=== PATIENT | female | born 1960 | race Caucasian/White ===

== ENCOUNTER 2017-05-23 12:07 | Inpatient (IN) | payer OTHER ==
[2017-05-23] MEDS ORDERED: Morphine Sulfate 2 mg/mL 1mL Syr IM STA (12:20)
[2017-05-23] MEDS ORDERED: Morphine Sulfate 4 mg/mL 1mL Syr ONE (12:24)
[2017-05-23] MEDS ORDERED: Sodium Chloride 0.9% 1,000 ML IV ONE (13:36)
[2017-05-23 13:49] LABS: % BASOPHILS 1.1 % (0.0-2.0); % LYMPHOCYTES 8.2 % (20.0-50.0); % MONOCYTES 3.1 % (2.0-10.0); % NEUTROPHILS 86.6 % (40.0-80.0); BASOPHILE ABSOLUTE 0.1 Th/cumm (0-0.2); EOSINOPHILE ABSOLUTE 0.1 Th/cmm (0.1-0.4); HEMATOCRIT 44.9 % (41.0-60); MEAN CELL VOLUME 86.6 fl (81-100); MEAN CORPUSCULAR HEMOGLOBIN 28.9 pg (27.0-31.0); MEAN CORPUSCULAR HGB CONC 33.4 pg (28.0-36.0); MEAN PLATELET VOLUME 7.9 fl; MONOCYTE ABSOLUTE 0.4 Th/cmm (0.3-1.0); PLATELET COUNT 253 Th/cmm (150-400); RED BLOOD COUNT 5.18 Mil/cmm (3.80-5.10); RED CELL DISTRIBUTION WIDTH 12.5 % (11.5-20.0); WHITE BLOOD COUNT 11.6 Th/cmm (4.8-10.8)
[2017-05-23 13:51] LABS: URINE MICROSCOPIC INDICATED? YES; URINE SOURCE CLEAN C
[2017-05-23 14:01] LABS: URINE BILIRUBIN NEGATIVE (NEGATIVE); URINE BLOOD LARGE (NEGATIVE); URINE CLARITY CLEAR (CLEAR); URINE COLOR YELLOW; URINE GLUCOSE (UA) NEGATIVE (NEGATIVE); URINE KETONE NEGATIVE (NEGATIVE); URINE LEUKOCYTE ESTERASE NEGATIVE (NEGATIVE); URINE NITRATE NEGATIVE (NEGATIVE); URINE PROTEIN NEGATIVE (NEGATIVE); URINE UROBILINOGEN 0.2 E.U./dL (0.2 - 1.0)
--- NOTE | 2017-05-23 14:03 | ED Physician Chart ---
ED Chief Complaint/HPI - Patient Information Date Seen:: 05/23/17 Time Seen:: 12:20 Chief Complaint:: Flank Pain History of Present Illness:: onset since 8am this am of intermittent, crampy right flank pain, N/V; pt denies trauma, H/As, S/T, neck pain, cough, C/P, SOB, Abd. Pain, A/D/C, fever, chills, or urinary s/s Allergies:: Allergies Allergy/AdvReac Type Severity Reaction Status Date / Time No Known Allergies Allergy Verified 05/23/17 12:20 Vitals:: Vital Signs - 8 hr 05/23/17 05/23/17 12:20 13:46 Temp 97.3 F 98.0 F HR 76 82 RR 16 18 BP 142/79 173/78 O2 Sat % 96 99 Historian:: Patient, Family Member Review:: Nurse's Note Reviewed ED Review of Systems - Review of Systems General/Constitutional: No fever, No chills, No weight loss, No weakness, No diaphoresis, No edema, No loss of appetite Skin: No skin lesions, No rash, No bruising Head: No headache, No light-headedness Eyes: No loss of vision, No pain, No diplopia ENT: No earache, No nasal drainage, No sore throat, No tinnitus Neck: No neck pain, No swelling, No thyromegaly, No stiffness, No mass noted Cardio Vascular: No chest pain, No palpitations, No PND, No orthopnea, No edema Pulmonary: No SOB, No cough, No sputum, No wheezing GI: Nausea, Vomiting, Diarrhea, Pain, No melena, No hematochezia, No constipation, No hematemesis G/U: No dysuria, No frequency, Hematuria, No nacturia Certified Coder: No vaginal discharge, No abnormal vaginal bleed, No contraction Musculoskeletal: No bone or joint pain, No back pain, No muscle pain Endocrine: No polyuria, No polydipsia Psychiatric: No prior psych history, No depression, No anxiety, No suicidal ideation, No homicidal ideation, No auditory hallucination, No visual hallucination Hematopoietic: No bruising, No lymphadenopathy Allergic/Immuno: No urticaria, No angioedema Neurological: No syncope, No focal symptoms, No weakness, No paresthesia, No headache, No seizure, No dizziness, No confusion, No vertigo ED Past Medical History - Past Medical History Obtainable: Yes Past Medical History: HTN, Renal stone Family History: HTN Social History: Non Smoker, No Alcohol, No Drug Use, Surgical History: Appendectomy, Hysterectomy Psychiatricy History: None Medication: Reviewed Family Medical History - Family Member Mother Ethnicity: Non- Living Status: Still Living Hx Family Cancer: Yes (Breast cancer) Hx Family Coronary Artery Disease: No Hx Family Congestive Heart Failure: No Hx Family Hypertension: No Hx Family Stroke: No Hx Family Diabetes: No Hx Family Seizures: No Hx Family Dementia: No Hx Family AIDS: No Hx Family HIV: No Hx Family COPD: No Hx Family Hepatitis: No Hx Family Psychiatric Problems: No Hx Family Tuberculosis: No ED Physical Exam - Physical Examination General/Constitutional: Awake, Well-developed, well-nourished, Alert, No distress, GCS 15, Non-toxic appearing, Ambulatory Head: Atraumatic Eyes: Lids, conjuctiva normal, PERRL, EOMI Skin: Nl inspection, No rash, No skin lesions, No ecchymosis, Well hydrated, No lymphadenopathy ENMT: External ears, nose nl, TM canals nl, Nasal exam nl, Lips, teeth, gums nl , Oropharynx nl, Tonsils nl Neck: Nontender, Full ROM w/o pain, No JVD, No nuchal rigidity, No bruit, No mass, No stridor Other Neck comments:: supple; no cervical tenderness; no meningeal signs Respiratory: Nl effort/Exclusion, Clear to Auscultation, No Wheeze/Rhonchi/Rales Cardio Vascular: RRR, No murmur, gallop, rubs, NL S1 S2, Carotid/Femoral/Distal pulses equal bilaterally GI: No tenderness/rebounding/guarding, No organomegaly, No hernia, Normal BS's, Nondistended, No mass/bruits, No McBurney tenderness, Rectum exam nl Other GI comments:: no pulsatile masses : No CVA tenderness Extremities: No tenderness or effusion, Full ROM, normal strength in all extremities, No edema, Normal digits & nails Neuro/Psych: Alert/oriented, DTR's symmetric, Normal sensory exam, Normal motor strength, Judgement/insight normal, Mood normal, Normal gait, No focal deficits Misc: Normal back, No paraspinal tenderness ED Labs/Radiology/EKG Results - Lab Results Results: Laboratory Tests 05/23/17 13:36 WBC 11.6 H RBC 5.18 H Hgb 15.0 Hct 44.9 MCV 86.6 MCH 28.9 MCHC Differential 33.4 RDW 12.5 Plt Count 253 MPV 7.9 Neutrophils % 86.6 H Lymphocytes % 8.2 L Monocytes % 3.1 Eosinophils % 1.0 Basophils % 1.1 Comments:: U/A: + Blood - Radiology Results Comments:: + Right Ureter Calculus - EKG Interpretations EKG Time:: 13:40 Rate & Rhythm: 69; NSR Comments:: non-specific st-t changes ED Septic Shock - . Is Septic Shock (SBP<90, OR Lactate>4 mmol\L) present?: No - <6hrs of presentation: Vital Signs: Vital Signs - 8 hr 05/23/17 05/23/17 12:20 13:46 Temp 97.3 F 98.0 F HR 76 82 RR 16 18 BP 142/79 173/78 O2 Sat % 96 99 ED Reassessment (Disposition) - Reassessment Reassessment Condition:: Improved - Diagnosis Diagnosis:: Flank Pain; Hematuria; Ureterolithiasis - Aftercare/Follow up Instructions Aftercare/Follow-Up Instructions:: Counseled pt regarding lab results/diagnosis & need follow up, Counseled pt & family regarding lab results/diagnosis & need follow up - Patient Disposition Discharge/Transfer:: Acute Care w/in this hosp Accepting Physician:: Dr. Richter Time Called:: 0306 Time Responded:: 14:15 Admitted to:: Med/Surg Spoke to:: Dr. Richter Admitting Medical Physician:: Dr. Richter Condition at Disposition:: Stable, Improved
[2017-05-23 14:04] LABS: URINE BACTERIA FEW /hpf (NONE SEEN); URINE EPITHELIAL CELLS FEW /lpf (FEW); URINE WBC 0-2 /hpf (0-5)
[2017-05-23 14:04] LABS: INR 0.99 (0.5-1.4); PROTHROMBIN TIME (TEST) 10.3 SECONDS (9.5-11.5)
[2017-05-23 14:12] LABS: ALB/GLOB RATIO 1.4 (1.0-1.8); ALBUMIN 4.4 gm/dL (3.7-5.3); ALKALINE PHOSPHATASE 88 U/L (34-104); AMYLASE SERUM 18 U/L (29-103); ANION GAP 11.9 (7.0-16.0); BILIRUBIN,TOTAL 1.2 mg/dL (0.3-1.0); BUN - UREA NITROGEN 18 mg/dL (7-25); CALCIUM SERUM 10.1 mg/dL (8.6-10.3); CARBON DIOXIDE 24.9 mEq/L (21.0-31.0); CHLORIDE 103 mEq/L (98-107); CHOLESTEROL 218 mg/dL (<200); CREATININE KINASE 64 U/L (30-223); GFR AFRICAN-AMERICAN > 60.0 ml/min (>90); GFR NON AFRICAN-AMERICAN > 60.0 ml/min; GLUCOSE 137 mg/dL (70-105); HDL -HIGH DENSITY LIPOPROTEIN 49 mg/dL (23-92); LIPASE 24 U/L (11-82); POTASSIUM SERUM 3.8 mEq/L (3.5-5.1); SGOT 11 U/L (13-39); SGPT/ALT 11 U/L (7-52); SODIUM SERUM 136 mEq/L (136-145); TOTAL PROTEIN,SERUM 7.6 gm/dL (6.0-8.3); TRIGLYCERIDES 126 mg/dL (<150)
[2017-05-23] MEDS ORDERED: Morphine Sulfate 4 mg/mL 1mL Syr IM PRN (16:07)
[2017-05-23 17:44] VITALS: BP 146/80
[2017-05-23] MEDS: Sodium Chloride 0.9% 1,000 ML IV SCH ×2 (18:07→22:32)
--- NOTE | 2017-05-23 23:13 | Consultation ---
Consult Note - Consult Note Service Date: 05/23/17 Referring Physician: Crystal Richter Consult Note: PHYSICIAN Consultation Note: Date of Admission: 05/23/17 Purpose of Consultation: hematuria, nephrolithiasis. Chief Complaint: flank pain. History of Present Illness: Patient GRACE RANDHAWA was admitted to [facility] Unit I with KIDNEY STONES. Past Medical History: 56 year old female presented tot he ER for right flank pain with CVA tenderness. She denies any fever or chills. On initial evaluation , she was afebrile and WBC Count was 11k. UA showed mild hematuria, CT abdomen and pelvis revealed right distal ureteric stone. ID consult was called for antibiotic management. Allergies Allergy/AdvReac Type Severity Reaction Status Date / Time No Known Allergies Allergy Verified 05/23/17 12:20 Vital Signs Temp 97.6 F 05/23/17 19:54 Pulse 77 05/23/17 19:54 Resp 18 05/23/17 19:54 BP 139/70 05/23/17 19:54 Pulse Ox 96 05/23/17 19:54 Intake & Output 05/23/17 05/23/17 05/24/17 06:59 18:59 06:59 Intake Total 350 883.333 Balance 350 883.333 Weight (lbs) 95.254 kg Intake: Intake, IV Amount 883.333 Sodium Chloride 0.9% 1, 883.333 000 ml @ 200 mls/hr IV . Q5H [facility] Rx#:[id number] Oral 350 Other: # Voids 1 # Bowel Movements 0 Weight Source Bedscale Home Medication Medication Instructions Recorded Type amLODIPine Besylate [Norvasc] 5 mg PO DAILY #30 tab 02/02/15 Rx Current Medications Generic Name Dose Route Start Last Admin Trade Name Freq PRN Reason Stop Dose Admin Amlodipine Besylate 5 mg 05/24/17 09:00 Norvasc PO 07/23/17 08:59 DAILY [facility] Sodium Chloride 1,000 mls @ 200 mls/hr 05/23/17 16:04 05/23/17 22:32 Nacl 0.9% IV 07/22/17 16:03 200 mls/hr .Q5H [facility] Administration Ketorolac Tromethamine 30 mg 05/23/17 16:20 05/23/17 20:07 Toradol IVP 05/28/17 16:19 30 mg Q6H PRN Administration Pain (Mild) Morphine Sulfate 2 mg 05/23/17 16:07 Morphine IM 07/22/17 16:01 Q4H PRN Pain (Moderate) Tamsulosin HCl 0.4 mg 05/23/17 17:00 05/23/17 17:16 Flomax PO 05/25/17 16:59 0.4 mg BID [facility] Administration Review of Systems: A 12 point ROS was reviewed with the pertinent positive and negatives noted in the HPI. Social History Smoking Status Former smoker Family Medical History Family Medical History Start: 05/23/17 16: 55 Freq: ONCE Status: Active Document 05/23/17 16:55 [facility] (Rec: 05/23/17 17:48 [email or web address]) Family Medical History Mother History Unknown Yes Physical Exam: General: Comfortable, not in any acute distress. HEENT: Head: normocephalic, atraumatic. Oral cavity: moist: pink tongue. Eyes: no pallor, no icterus. Pupill PERRLA. EOMI. Neck: Supple, no JVD. Cardio: S1 S2 WNL. Respiratory: vesicular breath sounds. No crackles, no wheezing. Abdominal: Soft NT ND BS present. Genital/Urinary: deferred Extremities: NCCE Neurological: AAOx3, no focal weakness. Assessment: 1. Hematuria, 2. Nephrolithiasis. 3. Leukocytosis, 4. Obesity. Plan: Cipro 250 mg po bid for 7 days, Follow up final CT scan of abdomen report. US renal/ Signed, Anthony Palmer M.D. [id number]
--- NOTE | 2017-05-24 01:17 | History & Physical ---
ADMIT DATE: 05/23/2017 HISTORY OF PRESENT ILLNESS: This is a female who came to the Emergency Room complaining of severe right flank pain and seen in the Emergency Room, had no fever, no chills, no rigors and the patient found to have a ureteral stone. REVIEW OF SYSTEMS: No polyuria, no polydipsia, no vaginal discharge, no dysuria. No nausea, vomiting, no bruising, etc. Rest of the system review negative. PAST MEDICAL HISTORY: Hypertension and renal stones in the past. PHYSICAL EXAMINATION: GENERAL: Alert, oriented female. VITAL SIGNS: Stable. Blood pressure was 142/79. HEAD: Normal. ENT: Normal. NECK: Supple, nontender. LUNGS: Clear. CARDIOVASCULAR SYSTEM: S1, S2 heard. ABDOMEN: flank tenderness noted. CENTRAL NERVOUS SYSTEM: Grossly normal. LABORATORY AND DIAGNOSTIC DATA: White count was slightly elevated at 11.6, hemoglobin 15, crit of 44. Electrolytes are within normal limits. EKG normal sinus rhythm, no acute ST-T changes. DIAGNOSES: Acute right flank pain, renal colic, renal stones and history of hypertension was made. The patient is being admitted. I will give IV fluids and antibiotics and I will have Dr. Anthony Palmer see the patient as well as Urology, Dr. Leo and I will follow the patient. JOB# [id number]
[2017-05-24] MEDS: Sodium Chloride 0.9% 1,000 ML IV SCH ×2 (03:10→08:07)
[2017-05-24 06:07] LABS: % BASOPHILS 0.8 % (0.0-2.0); % EOSINOPHILS 1.7 % (0.0-5.0); % LYMPHOCYTES 16.8 % (20.0-50.0); % MONOCYTES 6.8 % (2.0-10.0); % NEUTROPHILS 73.9 % (40.0-80.0); BASOPHILE ABSOLUTE 0.1 Th/cumm (0-0.2); EOSINOPHILE ABSOLUTE 0.1 Th/cmm (0.1-0.4); HEMOGLOBIN 12.9 gm/dL (12-16); LYMPHOCYTE ABSOLUTE 1.3 Th/cmm (1.5-3.0); MEAN CELL VOLUME 87.2 fl (81-100); MEAN CORPUSCULAR HEMOGLOBIN 29.3 pg (27.0-31.0); MEAN CORPUSCULAR HGB CONC 33.6 pg (28.0-36.0); MEAN PLATELET VOLUME 7.6 fl; MONOCYTE ABSOLUTE 0.5 Th/cmm (0.3-1.0); PLATELET COUNT 219 Th/cmm (150-400); RED CELL DISTRIBUTION WIDTH 12.8 % (11.5-20.0)
[2017-05-24 06:12] LABS: HEMATOCRIT 38.3 % (41.0-60)
[2017-05-24 06:34] LABS: ALB/GLOB RATIO 1.4 (1.0-1.8); ALBUMIN 3.5 gm/dL (3.7-5.3); ALKALINE PHOSPHATASE 68 U/L (34-104); ANION GAP 8.3 (7.0-16.0); BILIRUBIN,TOTAL 0.9 mg/dL (0.3-1.0); BUN - UREA NITROGEN 13 mg/dL (7-25); CARBON DIOXIDE 26.9 mEq/L (21.0-31.0); CHLORIDE 110 mEq/L (98-107); CHOLESTEROL 180 mg/dL (<200); CREATININE - SERUM 0.9 mg/dL (0.6-1.2); GFR AFRICAN-AMERICAN > 60.0 ml/min (>90); GFR NON AFRICAN-AMERICAN > 60.0 ml/min; GLUCOSE 100 mg/dL (70-105); HDL -HIGH DENSITY LIPOPROTEIN 42 mg/dL (23-92); POTASSIUM SERUM 4.2 mEq/L (3.5-5.1); SGOT 11 U/L (13-39); SGPT/ALT 8 U/L (7-52); SODIUM SERUM 141 mEq/L (136-145); TRIGLYCERIDES 67 mg/dL (<150)
--- NOTE | 2017-05-24 07:35 | Diagnostic Imaging Report ---
CT abdomen and pelvis without intravenous contrast Indication: Flank pain, rule out kidney stones Comparison: None, Technique: Axial images were obtained from the lung bases to the bilateral proximal femurs without IV contrast. Coronal reconstructions were made. total DLP: 805, CTDI16.1 FINDINGS: Hypoventilatory and atelectatic changes of the lung bases are noted. Exam is limited due to motion. Assessment of solid organs is also limited due to lack of IV contrast. No evidence of focal hepatic, splenic, pancreatic, or adrenal lesions. 2 mm nonobstructive left renal stone is noted. Right-sided perinephric inflammatory changes seen with mild right hydronephrosis and right hydroureter. There is a 2 to 3 mm stone of the distal right ureter. The urinary bladder is underdistended limiting its evaluation. Diverticulosis is noted without evidence of diverticulitis. Appendix is not well-visualized. No evidence of free abdominal air or free abdominal fluid. Mild atherosclerosis is noted. Degenerative changes of the spine are noted with scoliosis. IMPRESSION: 2 to 3 mm stone of the right distal ureter causing mild right hydronephrosis and right hydroureter with surrounding right perinephric inflammatory changes 2mm nonobstructive left renal stone. Diverticulosis without evidence of diverticulitis. Atherosclerotic vascular disease. Degenerative changes of spine with scoliosis.
--- NOTE | 2017-05-24 10:52 | Diagnostic Imaging Report ---
Renal ultrasound HISTORY: Hydronephrosis, pyelonephritis. COMPARISON: CT abdomen and pelvis on 05/23/2017 Technique: Sonography of the kidneys and urinary bladder was performed in multiple planes. FINDINGS: The right kidney measures 12.3 x 4.7 cm. There is mild right hydronephrosis. No focal lesions identified. The left kidney measures 10.7 x 5.0 cm. The recently seen punctate stone on recent CT examination was not identified on this ultrasound. The urinary bladder is grossly unremarkable. No evidence of elevated posterior residual bladder volumes. IMPRESSION: Mild right-sided hydronephrosis. This is likely secondary to a distal right ureteral stone seen on recent CT examination.
--- NOTE | 2017-05-24 15:19 | General Progress Note ---
Subjective - Review of Systems Events since last encounter: patient awake alert c/o flank pain no fever Objective - Results Result Diagrams: 05/24/17 05:53 05/24/17 05:53 Recent Labs: Laboratory Last Values WBC 8.0 Th/cmm (4.8-10.8) D 05/24/17 05:53 RBC 4.40 Mil/cmm (3.80-5.10) 05/24/17 05:53 Hgb 12.9 gm/dL (12-16) 05/24/17 05:53 Hct 38.3 % (41.0-60) L D 05/24/17 05:53 MCV 87.2 fl (81-100) 05/24/17 05:53 MCH 29.3 pg (27.0-31.0) 05/24/17 05:53 MCHC Differential 33.6 pg (28.0-36.0) 05/24/17 05:53 RDW 12.8 % (11.5-20.0) 05/24/17 05:53 Plt Count 219 Th/cmm (150-400) 05/24/17 05:53 MPV 7.6 fl 05/24/17 05:53 Neutrophils % 73.9 % (40.0-80.0) 05/24/17 05:53 Lymphocytes % 16.8 % (20.0-50.0) L 05/24/17 05:53 Monocytes % 6.8 % (2.0-10.0) 05/24/17 05:53 Eosinophils % 1.7 % (0.0-5.0) 05/24/17 05:53 Basophils % 0.8 % (0.0-2.0) 05/24/17 05:53 PT 10.3 SECONDS (9.5-11.5) 05/23/17 13:43 INR 0.99 (0.5-1.4) 05/23/17 13:43 Sodium 141 mEq/L (136-145) 05/24/17 05:53 Potassium 4.2 mEq/L (3.5-5.1) 05/24/17 05:53 Chloride 110 mEq/L (98-107) H 05/24/17 05:53 Carbon Dioxide 26.9 mEq/L (21.0-31.0) 05/24/17 05:53 Anion Gap 8.3 (7.0-16.0) 05/24/17 05:53 BUN 13 mg/dL (7-25) 05/24/17 05:53 Creatinine 0.9 mg/dL (0.6-1.2) 05/24/17 05:53 Est GFR ( Amer) > 60.0 ml/min (>90) 05/24/17 05:53 Est GFR (Non-Af Amer) > 60.0 ml/min 05/24/17 05:53 BUN/Creatinine Ratio 14.4 05/24/17 05:53 Glucose 100 mg/dL (70-105) 05/24/17 05:53 Calcium 9.0 mg/dL (8.6-10.3) 05/24/17 05:53 Total Bilirubin 0.9 mg/dL (0.3-1.0) 05/24/17 05:53 AST 11 U/L (13-39) L 05/24/17 05:53 ALT 8 U/L (7-52) 05/24/17 05:53 Alkaline Phosphatase 68 U/L (34-104) 05/24/17 05:53 Creatine Kinase 64 U/L (30-223) 05/23/17 13:43 Troponin I < 0.01 ng/mL (0.01-0.05) L 05/23/17 13:43 B-Natriuretic Peptide 42.1 pg/mL (5.0-100.0) 05/23/17 13:43 Total Protein 6.0 gm/dL (6.0-8.3) 05/24/17 05:53 Albumin 3.5 gm/dL (3.7-5.3) L 05/24/17 05:53 Globulin 2.5 gm/dL 05/24/17 05:53 Albumin/Globulin Ratio 1.4 (1.0-1.8) 05/24/17 05:53 Triglycerides 67 mg/dL (<150) 05/24/17 05:53 Cholesterol 180 mg/dL (<200) 05/24/17 05:53 LDL Cholesterol Direct 115 mg/dL (75-193) 05/24/17 05:53 HDL Cholesterol 42 mg/dL (23-92) 05/24/17 05:53 Amylase 18 U/L (29-103) L 05/23/17 13:43 Lipase 24 U/L (11-82) 05/23/17 13:43 TSH 2.37 uIU/ml (0.34-5.60) 05/24/17 05:53 Serum , Qual NEGATIVE (NEGATIVE) 05/23/17 13:34 Urine Source CLEAN C 05/23/17 13:34 Urine Color YELLOW 05/23/17 13:34 Urine Clarity CLEAR (CLEAR) 05/23/17 13:34 Urine pH 6.0 (4.6 - 8.0) 05/23/17 13:34 Ur Specific [place] >= 1.030 (1.005-1.030) 05/23/17 13:34 Urine Protein NEGATIVE mg/dL (NEGATIVE) 05/23/17 13:34 Urine Glucose (UA) NEGATIVE mg/dL (NEGATIVE) 05/23/17 13:34 Urine Ketones NEGATIVE mg/dL (NEGATIVE) 05/23/17 13:34 Urine Blood LARGE (NEGATIVE) H 05/23/17 13:34 Urine Nitrate NEGATIVE (NEGATIVE) 05/23/17 13:34 Urine Bilirubin NEGATIVE (NEGATIVE) 05/23/17 13:34 Urine Urobilinogen 0.2 E.U./dL (0.2 - 1.0) 05/23/17 13:34 Ur Leukocyte Esterase NEGATIVE (NEGATIVE) 05/23/17 13:34 Urine RBC 5-10 /hpf (0-5) H 05/23/17 13:34 Urine WBC 0-2 /hpf (0-5) 05/23/17 13:34 Ur Epithelial Cells FEW /lpf (FEW) 05/23/17 13:34 Urine Bacteria FEW /hpf (NONE SEEN) 05/23/17 13:34 Urine Test NEGATIVE 05/23/17 13:34 - Physical Exam Vitals and I&O: Vital Signs Temp 97.9 F 05/24/17 11:24 Pulse 82 05/24/17 11:24 Resp 18 05/24/17 11:24 BP 146/78 05/24/17 14:02 Pulse Ox 96 05/24/17 11:24 Intake & Output 05/23/17 05/24/17 05/24/17 18:59 06:59 18:59 Intake Total 350 1810.000 990 Balance 350 1810.000 990 Weight (lbs) 95.254 kg 96.706 kg Intake: Intake, IV Amount 1810.000 990 Sodium Chloride 0.9% 1, 1810.000 990 000 ml @ 200 mls/hr IV . Q5H [facility] Rx#:[id number] Oral 350 Other: # Voids 1 # Bowel Movements 0 Weight Source Bedscale Bedscale Active Medications: Current Medications Amlodipine Besylate (Norvasc) 5 mg PO DAILY [facility] Stop: 07/23/17 08:59 Last Admin: 05/24/17 08:08 Dose: 5 mg Ciprofloxacin (Cipro) 250 mg PO BID [facility] Stop: 07/23/17 08:59 Last Admin: 05/24/17 08:08 Dose: 250 mg Furosemide (Lasix) 20 mg PO DAILY [facility] Stop: 07/23/17 08:59 Last Admin: 05/24/17 14:02 Dose: 20 mg Potassium Chloride 10 meq/ (Sodium Chloride) 1,005 mls @ 175 mls/hr IV .Q5H45M [facility] Stop: 07/23/17 13:59 Last Admin: 05/24/17 14:23 Dose: 175 mls/hr Ketorolac Tromethamine (Toradol) 30 mg IVP Q6H PRN PRN Reason: Pain (Mild) Stop: 05/28/17 16:19 Last Admin: 05/23/17 20:07 Dose: 30 mg Morphine Sulfate (Morphine) 2 mg IM Q4H PRN PRN Reason: Pain (Moderate) Stop: 07/22/17 16:01 Tamsulosin HCl (Flomax) 0.4 mg PO BID [facility] Stop: 05/25/17 16:59 Last Admin: 05/24/17 08:08 Dose: 0.4 mg
--- NOTE | 2017-05-24 23:32 | Infectious Disease Prog Note ---
Infectious Disease Subjective - Review of Systems Service Date: 05/24/17 Subjective: There is no new change, no fever. Infectious Disease Objective - Results Result Diagrams: 05/24/17 05:53 05/24/17 05:53 Recent Labs: Laboratory Last Values WBC 8.0 Th/cmm (4.8-10.8) D 05/24/17 05:53 RBC 4.40 Mil/cmm (3.80-5.10) 05/24/17 05:53 Hgb 12.9 gm/dL (12-16) 05/24/17 05:53 Hct 38.3 % (41.0-60) L D 05/24/17 05:53 MCV 87.2 fl (81-100) 05/24/17 05:53 MCH 29.3 pg (27.0-31.0) 05/24/17 05:53 MCHC Differential 33.6 pg (28.0-36.0) 05/24/17 05:53 RDW 12.8 % (11.5-20.0) 05/24/17 05:53 Plt Count 219 Th/cmm (150-400) 05/24/17 05:53 MPV 7.6 fl 05/24/17 05:53 Neutrophils % 73.9 % (40.0-80.0) 05/24/17 05:53 Lymphocytes % 16.8 % (20.0-50.0) L 05/24/17 05:53 Monocytes % 6.8 % (2.0-10.0) 05/24/17 05:53 Eosinophils % 1.7 % (0.0-5.0) 05/24/17 05:53 Basophils % 0.8 % (0.0-2.0) 05/24/17 05:53 PT 10.3 SECONDS (9.5-11.5) 05/23/17 13:43 INR 0.99 (0.5-1.4) 05/23/17 13:43 Sodium 141 mEq/L (136-145) 05/24/17 05:53 Potassium 4.2 mEq/L (3.5-5.1) 05/24/17 05:53 Chloride 110 mEq/L (98-107) H 05/24/17 05:53 Carbon Dioxide 26.9 mEq/L (21.0-31.0) 05/24/17 05:53 Anion Gap 8.3 (7.0-16.0) 05/24/17 05:53 BUN 13 mg/dL (7-25) 05/24/17 05:53 Creatinine 0.9 mg/dL (0.6-1.2) 05/24/17 05:53 Est GFR ( Amer) > 60.0 ml/min (>90) 05/24/17 05:53 Est GFR (Non-Af Amer) > 60.0 ml/min 05/24/17 05:53 BUN/Creatinine Ratio 14.4 05/24/17 05:53 Glucose 100 mg/dL (70-105) 05/24/17 05:53 Calcium 9.0 mg/dL (8.6-10.3) 05/24/17 05:53 Total Bilirubin 0.9 mg/dL (0.3-1.0) 05/24/17 05:53 AST 11 U/L (13-39) L 05/24/17 05:53 ALT 8 U/L (7-52) 05/24/17 05:53 Alkaline Phosphatase 68 U/L (34-104) 05/24/17 05:53 Creatine Kinase 64 U/L (30-223) 05/23/17 13:43 Troponin I < 0.01 ng/mL (0.01-0.05) L 05/23/17 13:43 B-Natriuretic Peptide 42.1 pg/mL (5.0-100.0) 05/23/17 13:43 Total Protein 6.0 gm/dL (6.0-8.3) 05/24/17 05:53 Albumin 3.5 gm/dL (3.7-5.3) L 05/24/17 05:53 Globulin 2.5 gm/dL 05/24/17 05:53 Albumin/Globulin Ratio 1.4 (1.0-1.8) 05/24/17 05:53 Triglycerides 67 mg/dL (<150) 05/24/17 05:53 Cholesterol 180 mg/dL (<200) 05/24/17 05:53 LDL Cholesterol Direct 115 mg/dL (75-193) 05/24/17 05:53 HDL Cholesterol 42 mg/dL (23-92) 05/24/17 05:53 Amylase 18 U/L (29-103) L 05/23/17 13:43 Lipase 24 U/L (11-82) 05/23/17 13:43 TSH 2.37 uIU/ml (0.34-5.60) 05/24/17 05:53 Serum , Qual NEGATIVE (NEGATIVE) 05/23/17 13:34 Urine Source CLEAN C 05/23/17 13:34 Urine Color YELLOW 05/23/17 13:34 Urine Clarity CLEAR (CLEAR) 05/23/17 13:34 Urine pH 6.0 (4.6 - 8.0) 05/23/17 13:34 Ur Specific [place] >= 1.030 (1.005-1.030) 05/23/17 13:34 Urine Protein NEGATIVE mg/dL (NEGATIVE) 05/23/17 13:34 Urine Glucose (UA) NEGATIVE mg/dL (NEGATIVE) 05/23/17 13:34 Urine Ketones NEGATIVE mg/dL (NEGATIVE) 05/23/17 13:34 Urine Blood LARGE (NEGATIVE) H 05/23/17 13:34 Urine Nitrate NEGATIVE (NEGATIVE) 05/23/17 13:34 Urine Bilirubin NEGATIVE (NEGATIVE) 05/23/17 13:34 Urine Urobilinogen 0.2 E.U./dL (0.2 - 1.0) 05/23/17 13:34 Ur Leukocyte Esterase NEGATIVE (NEGATIVE) 05/23/17 13:34 Urine RBC 5-10 /hpf (0-5) H 05/23/17 13:34 Urine WBC 0-2 /hpf (0-5) 05/23/17 13:34 Ur Epithelial Cells FEW /lpf (FEW) 05/23/17 13:34 Urine Bacteria FEW /hpf (NONE SEEN) 05/23/17 13:34 Urine Test NEGATIVE 05/23/17 13:34 - Physical Exam Vitals and I&O: Vital Signs Temp 97.4 F 05/24/17 20:00 Pulse 74 05/24/17 20:00 Resp 20 05/24/17 20:00 BP 146/77 05/24/17 20:00 Pulse Ox 97 05/24/17 20:00 Intake & Output 05/24/17 05/24/17 05/25/17 06:59 18:59 06:59 Intake Total 3132.942 7667.25 348.75 Balance 0301.916 6032.25 348.75 Weight (lbs) 96.706 kg 96.706 kg Intake: Intake, IV Amount 6512.810 1188.25 348.75 Potassium Chloride 10 meq 656.25 348.75 In Sodium Chloride 0.45% 1,000 ml @ 175 mls/hr IV .Q5H45M [facility] Rx#: [id number] Sodium Chloride 0.9% 1, 1810.000 990 000 ml @ 200 mls/hr IV . Q5H [facility] Rx#:[id number] Oral 1200 Other: # Voids 10 # Bowel Movements 1 Weight Source Bedscale Bedscale Active Medications: Current Medications Amlodipine Besylate (Norvasc) 5 mg PO DAILY [facility] Stop: 07/23/17 08:59 Last Admin: 05/24/17 08:08 Dose: 5 mg Ciprofloxacin (Cipro) 250 mg PO BID [facility] Stop: 07/23/17 08:59 Last Admin: 05/24/17 16:36 Dose: 250 mg Furosemide (Lasix) 20 mg PO DAILY [facility] Stop: 07/23/17 08:59 Last Admin: 05/24/17 14:02 Dose: 20 mg Potassium Chloride 10 meq/ (Sodium Chloride) 1,005 mls @ 175 mls/hr IV .Q5H45M [facility] Stop: 07/23/17 13:59 Last Admin: 05/24/17 20:13 Dose: 175 mls/hr Ketorolac Tromethamine (Toradol) 30 mg IVP Q6H PRN PRN Reason: Pain (Mild) Stop: 05/28/17 16:19 Last Admin: 05/24/17 15:57 Dose: 30 mg Morphine Sulfate (Morphine) 2 mg IM Q4H PRN PRN Reason: Pain (Moderate) Stop: 07/22/17 16:01 Tamsulosin HCl (Flomax) 0.4 mg PO BID [facility] Stop: 05/25/17 16:59 Last Admin: 05/24/17 16:36 Dose: 0.4 mg General: no acute distress, well developed, well nourished HEENT: atraumatic, normocephalic, PERRLA, EOMI Neck: supple, no thyromegaly Cardiovascular: S1S2, regular Lungs: clear to auscultation bilaterally, clear to percussion Abdomen: soft, no tender, no distended Extremities: no cyanosis, no clubbing, no edema Neurological: awake, alert, oriented Skin: intact Infectious Disease Assmt/Plan - Assessment Assessment: 1. Hematuria, 2. Nephrolithiasis. 3. Leukocytosis, 4. Obesity. - Plan Plan: CPM.
[2017-05-25 06:13] LABS: % BASOPHILS 0.5 % (0.0-2.0); % EOSINOPHILS 2.5 % (0.0-5.0); % LYMPHOCYTES 20.3 % (20.0-50.0); % MONOCYTES 6.2 % (2.0-10.0); % NEUTROPHILS 70.5 % (40.0-80.0); EOSINOPHILE ABSOLUTE 0.2 Th/cmm (0.1-0.4); HEMATOCRIT 37.5 % (41.0-60); HEMOGLOBIN 12.8 gm/dL (12-16); LYMPHOCYTE ABSOLUTE 1.4 Th/cmm (1.5-3.0); MEAN CORPUSCULAR HEMOGLOBIN 29.7 pg (27.0-31.0); MEAN CORPUSCULAR HGB CONC 34.1 pg (28.0-36.0); MEAN PLATELET VOLUME 7.9 fl; MONOCYTE ABSOLUTE 0.4 Th/cmm (0.3-1.0); NEUTROPHILE ABSOLUTE 5.1 Th/cmm (1.8-8.0); PLATELET COUNT 208 Th/cmm (150-400); RED BLOOD COUNT 4.31 Mil/cmm (3.80-5.10); RED CELL DISTRIBUTION WIDTH 12.7 % (11.5-20.0); WHITE BLOOD COUNT 7.1 Th/cmm (4.8-10.8)
[2017-05-25 06:33] LABS: ANION GAP 7.1 (7.0-16.0); BUN - UREA NITROGEN 12 mg/dL (7-25); CALCIUM SERUM 9.3 mg/dL (8.6-10.3); CARBON DIOXIDE 28.8 mEq/L (21.0-31.0); CHLORIDE 107 mEq/L (98-107); CREATININE - SERUM 0.8 mg/dL (0.6-1.2); GFR AFRICAN-AMERICAN > 60.0 ml/min (>90); GFR NON AFRICAN-AMERICAN > 60.0 ml/min; GLUCOSE 97 mg/dL (70-105); POTASSIUM SERUM 3.9 mEq/L (3.5-5.1); SODIUM SERUM 139 mEq/L (136-145)
--- NOTE | 2017-05-25 19:20 | Consultation ---
DATE OF CONSULTATION: 05/25/2017 UROLOGY CONSULTATION REASON FOR CONSULTATION: Seen for stone in the right ureter and hydronephrosis. HISTORY OF PRESENT ILLNESS: The patient is a 56-year-old, who was admitted on the with right-sided abdominal pain and some nausea, vomiting. No diarrhea. Also, denied fever, chills, dysuria, or hematuria. She admits to having stones, one at age 31 that she passed and then another one 2 years ago, which she also passed, but were never analyzed. No interim Urology followup or monitoring. There is a family history of stone disease. ALLERGIES: None. REVIEW OF SYSTEMS: No fever, chills, weight loss, headache, or seizures. Denies sore throat or runny nose. No skin lesions, rash, or arthritis. Denies chest pain, coughing, or shortness of breath. No dysuria or hematuria. MEDICAL HISTORY: Positive for hypertension secondly as well as the stone disease mentioned earlier. Denies diabetes or heart disease. SOCIAL HISTORY: Lives at home. She is and has no tobacco or substance abuse or alcohol problems. SURGICAL HISTORY: Had hysterectomy and appendectomy. PHYSICAL EXAMINATION: GENERAL: On exam, she is awake, alert, oriented. Pain has not come back since yesterday. VITAL SIGNS: Temperature 98, heart rate 72, blood pressure 144/76, T-max has been 98.6. HEAD AND NECK: Normocephalic. Trachea central. Pupils equal and reactive. No jaundice. Thyroid and lymph nodes not palpable. Carotid bruit absent. CHEST: Symmetrical. LUNGS: Clear. No rales or rhonchi. HEART: Sounds normal in sinus rhythm, no murmur. ABDOMEN: Soft, nontender, no organomegaly, mass, or hernia. Flanks nontender to percussion. EXTREMITIES: No edema or lymphadenopathy. NEUROLOGIC: Nonfocal. Moves all 4 limbs. LABORATORY DATA: White count 7.1 down from 11.6 on admission, hemoglobin 12.8, down from 15 on admission. Platelets normal. PT, PTT are normal. Electrolytes are normal. Creatinine 0.8, was up to 1.0 on admission. Total bilirubin 1.2 on admission, came down to 0.9. Subsequently, urinalysis showed large amount of blood, 5-10 red cells, and no cultures were done. CT scan of the abdomen and pelvis showed a 2-3 mm stone in the distal right ureter causing mild right hydronephrosis, hydroureter, and perinephric stranding and there is a second stone in the left kidney, nonobstructive 2 mm as well. Ultrasound of the kidneys done yesterday showed persistent mild right hydronephrosis. Therefore, she was continued on the aggressive hydration and expulsive therapy with which she has passed the stone this morning and hopefully as a result of present emergency situation. She still has to deal with the left-sided stone and ongoing risk of recurrent stones as she has already demonstrated. Recommended dietary modifications, increasing water and lemon intake while reducing salt and animal proteins. She needs Urology surveillance every 3-6 months and immediately after discharge to see a urologist within the week to make sure the stone has passed. Then, she should also follow up on the stone analysis, which we should be available by that time. Meanwhile, we can discharge her on Flomax for another month and thereafter as required depending on the followup. Thank you for the reference. JOB# [id number]
== END 2017-05-25 14:25 | disposition home or self-care (01) | DRG 694 ==
LOC: ER 12:07 → MSI 16:41
PROVIDERS: ADMIT Internal Medicine; ATTEND Internal Medicine
DX: N13.2 Hydronephrosis with renal and ureteral calculous obstruction (principal); E66.9 Obesity, unspecified; I10 Essential (primary) hypertension; R31.9 Hematuria, unspecified; R10.9 Unspecified abdominal pain; Z87.891 Personal history of nicotine dependence; Z68.33 Body mass index [BMI] 33.0-33.9, adult; Z82.49 Family history of ischemic heart disease and other diseases of the circulatory system; Z90.49 Acquired absence of other specified parts of digestive tract; Z90.710 Acquired absence of both cervix and uterus
CPT/HCPCS: 36415-UA; 76770-TC; 80048-TC; 80053-TC; 80061-TC; 81001-TC; 81025-TC; 82150-TC; 82550-TC; 83690-TC; 83880-TC; 84443-TC; 84484-TC; 84703-TC; 85025-TC; 85610-TC; 93005; 94760; 96374; J1885; J3480; J7030; Q0162; Z7610